=== PATIENT | female | born 1960 | race Caucasian/White ===

== ENCOUNTER 2016-06-19 17:13 | Emergency (ER) | payer OTHER ==
[~2016-06-19] VITALS: Ht 160 cm; Wt 59.0 kg
[2016-06-19 17:15] VITALS: BP 134/92; PULSE 102; RESP 16; TEMP 99.4; O2SAT 96
[2016-06-19 19:35] VITALS: BP 131/93; PULSE 87; RESP 16; O2SAT 97
[2016-06-19] MEDS ORDERED: SODIUM CHLORIDE 0.9% FLUSH 10 ML FLUSH IV FLUSH PRN (19:45)
--- NOTE | 2016-06-19 19:45 | PD ---
HPI Chief Complaint: Abdominal Pain Time Seen by Provider: 19:45 Travel History International Travel<30 days: No Contact w/Intl Traveler<30days: No Traveled to known affect area: No History of Present Illness HPI 56-year-old female presents to the emergency department for evaluation of abdominal pain, nausea and vomiting. Patient states that she's had intermittent abdominal pain for several weeks. States that the abdominal pain became unbearable 2 weeks ago and so she went to [facility] where she was admitted for small bowel extraction. States that she had a colonoscopy and an endoscopy as well as a small bowel series. States that she was told that she had a partial small bowel extraction and may be some enteritis. States that she was discharged home and after 1-2 days her symptoms worsened and she went to [facility] where she was admitted again for small bowel obstruction and discharged yesterday. States that today she tried to eat some soup and watermelon and was unable to keep food or fluids down. States that she has had abdominal pain since this morning that comes intermittently in waves. She describes the pain as generalized but worse in the epigastrium. She states that her last bowel movement was 4 days ago while in the hospital with assistance from an enema. She denies any fever, chills, chest pain, shortness of breath, dysuria, cough or cold symptoms. Denies any prior abdominal surgeries. No other complaints. PFSH Past Medical History Medical History: Denies Significant Hx ?: Not Past Surgical History Surgical History: No Previous Surgery Social History Alcohol Use: No Tobacco Use: Yes Substance Use: No Allergies-Medications (Allergen,Severity, Reaction): Coded Allergies: No Known Allergies (Unverified , 06/19/16) Reported Meds & Prescriptions Reported Meds & Active Scripts Active Zofran Odt (Ondansetron Odt) 4 Mg Tab 4 Mg SL Q6HR PRN Review of Systems Except as stated in HPI: all other systems reviewed are Neg Physical Exam Narrative GENERAL: Well-nourished and well-developed pleasant patient in no acute distress who is nontoxic appearing. SKIN: Warm and dry. HEAD: Normocephalic and atraumatic. EYES: No injection, drainage, or hyphema noted. PERRLA. EOMI. ENT: No nasal drainage noted. Oropharynx is clear. NECK: Supple and the trachea is midline. CARDIOVASCULAR: Regular rate and rhythm. RESPIRATORY: Breath sounds are equal bilaterally with no accessory muscle use, wheezing, rhonchi, or crackles. GASTROINTESTINAL: Generalized abdominal tenderness to palpation. No rebound tenderness or guarding. Abdomen is softand nondistended. MUSCULOSKELETAL: No obvious deformities, swelling, cyanosis, or ecchymosis is present throughout the upper and lower extremities. Patient has full range of motion without any signs of neurovascular compromise. NEUROLOGICAL: Awake, alert, and oriented. Normal speech and gait. Cranial nerves are grossly intact. Data Data Last Documented VS Vital Signs Date Time Temp Pulse Resp B/P Pulse Ox O2 Delivery O2 Flow Rate FiO2 06/19/16 19:35 87 16 131/93 97 Room Air 06/19/16 17:15 99.4 Orders Complete Blood Count With Diff (06/19/16 19:38) Comprehensive Metabolic Panel (06/19/16 19:38) Lipase (06/19/16 19:38) Abdomen, Flat & Upright (06/19/16 ) Iv Access Insert/Monitor (06/19/16 19:38) Ecg Monitoring (06/19/16 19:38) Oximetry (06/19/16 19:38) Sodium Chloride 0.9% Flush (Ns Flush) (06/19/16 19:45) Ct Abd/Pel W/O Iv Contrast (06/19/16 20:29) Ondansetron Odt (Zofran Odt) (06/19/16 22:00) Labs Laboratory Tests Test 06/19/16 20:10 White Blood Count 6.2 TH/MM3 Red Blood Count 4.39 MIL/MM3 Hemoglobin 13.9 GM/DL Hematocrit 40.0 % Mean Corpuscular Volume 91.0 FL Mean Corpuscular Hemoglobin 31.6 PG Mean Corpuscular Hemoglobin 34.7 % Concent Red Cell Distribution Width 14.4 % Platelet Count 298 TH/MM3 Mean Platelet Volume 8.8 FL Neutrophils (%) (Auto) 66.7 % Lymphocytes (%) (Auto) 22.0 % Monocytes (%) (Auto) 10.8 % Eosinophils (%) (Auto) 0.2 % Basophils (%) (Auto) 0.3 % Neutrophils # (Auto) 4.1 TH/MM3 Lymphocytes # (Auto) 1.4 TH/MM3 Monocytes # (Auto) 0.7 TH/MM3 Eosinophils # (Auto) 0.0 TH/MM3 Basophils # (Auto) 0.0 TH/MM3 CBC Comment DIFF FINAL Differential Comment Sodium Level 141 MEQ/L Potassium Level 4.2 MEQ/L Chloride Level 104 MEQ/L Carbon Dioxide Level 24.3 MEQ/L Anion Gap 13 MEQ/L Blood Urea Nitrogen 9 MG/DL Creatinine 0.63 MG/DL Estimat Glomerular Filtration 98 ML/MIN Rate Random Glucose 102 MG/DL Calcium Level 9.8 MG/DL Total Bilirubin 0.5 MG/DL Aspartate Amino Transf 23 U/L (AST/SGOT) Alanine Aminotransferase 30 U/L (ALT/SGPT) Alkaline Phosphatase 75 U/L Total Protein 7.2 GM/DL Albumin 3.7 GM/DL Lipase 60 U/L MDM Medical Decision Making Medical Screen Exam Complete: Yes Emergency Medical Condition: Yes Differential Diagnosis Gastritis versus SBO versus IBD versus colitis versus other Narrative Course 56-year-old female presents to the emergency department for evaluation of abdominal pain, nausea or vomiting. Patient is afebrile. She is initially slightly tachycardic with a heart of 102 bpm. Otherwise vital signs within normal limits. The patient has been admitted twice over the past 2 weeks at 2 separate hospitals for small bowel of extraction. She's had multiple CT scans, EGD, colonoscopy, small bowel series. I did review the records from [facility] that the patient had with her that showed a skid strapper believed symptoms to be due to enteritis and fecal impaction and recommended that if no relief she can be started on Amitiza or Linzess. Colonoscopy 06/12/16 showed fecal impaction but otherwise unremarkable. EGD 06/12 showed erosive gastritis. Small bowel series 06/10/69 shows nonspecific dilated distal small bowel loops without SBO. Records from [facility] are obtained and show that she was admitted there 5 days ago for small bowel extraction and possible bowel stricture. Gen. surgery consultation report shows questionable obstruction as the contrast appears to reach the rectum, small bowel series shows that there is no stricture. IV access is obtained, labs drawn and sent. CBC is unremarkable. CMP is unremarkable. Lipase is normal. Abdominal x-ray shows mildly dilated small loops of bowel, residual contrast, metallic density within the left mid abdomen likely related to ingested camera. CT of the abdomen and pelvis shows residual contrast within the large bowel from previous study causing artifact, some mildly prominent fluid-filled small bowel loops representing possible enteritis. Left basilar atelectasis. The patient has remained stable and without complaint while here in the emergency department. I discussed all results with the patient and family. I discussed with her that imaging and labs are reassuring today and essentially unremarkable. I discussed with the patient and family that she's had 2 recent admissions for the same complaint with full GI workups and I don't think that admitting her at this time would yield any further information. I stressed the importance of outpatient follow-up with a skid strapper. She is concerned as she is having difficulty eating and drinking at home, she states she doesn't have anything for nausea at home. We'll give the patient Zofran to take at home for her nausea. I did advise that she try to stay on a clear to full liquid diet and advance as tolerated. Patient and family verbalized understanding and agreement with treatment plan. I discussed the case with my attending physician Dr. Gooden who is aware of the patients history, physical examination findings, and treatment plan. Diagnosis Primary Impression: Abdominal pain Qualified Code: R10.84 - Generalized abdominal pain Additional Impression: Nausea & vomiting Qualified Code: R11.2 - Non-intractable vomiting with nausea, unspecified vomiting type Referrals: Shop Worker Patient Instructions: Abdominal Pain (ED), Acute Nausea and Vomiting (ED), General Instructions Additional Instructions: Liquid diet and advance as tolerated. Take medication as prescribed. Follow-up with your Shop Worker. Return to the ED for any acute worsening of symptoms. Med/Other Pt SpecificInfo: Prescription(s) given Scripts Ondansetron Odt (Zofran Odt)4 Mg Tab4 Mg SL Q6HR PRN (Nausea/Vomiting) #28 TAB Ref 0 Prov:Brandon Gooden MD 06/19/16 Disposition: 01 DISCHARGE HOME Condition: Stable Mere Lopez Jun 19, 2016 19:45
--- NOTE | 2016-06-19 20:13 | RADRPT ---
EXAM DATE/TIME: 06/19/2016 19:52 [facility] COMPARISON: No previous studies available for comparison. INDICATIONS : Abodmen pain. After small bowel study on 06/17. MEDICAL HISTORY : None. SURGICAL HISTORY : None. ENCOUNTER: Initial ACUITY: 3 days PAIN SCORE: 5/10 LOCATION: Bilateral Abdomen FINDINGS: Supine and upright views of the abdomen were performed. Mild lead dilated small bowel loops are seen within the upper abdomen. Residual contrast in the colon. Metallic density noted within the mid abdo men. No abnormal masses, calcifications, or organomegaly is seen. The visualized lower lungs are benoit ar. No evidence of free intraperitoneal gas. The osseous structures are unremarkable. CONCLUSION: 1. Mildly dilated small bowel loops are seen. 2. Residual contrast in the colon. 3. Metallic density within the left midabdomen likely related to ingested camera. Gian Anderson MD on June 19, 2016 at 20:08 Board Certified Radiologist. This report was verified electronically.
[2016-06-19 20:37] LABS: AUTOMATED NEUTROPHIL # 4.1 TH/MM3 (1.8-7.7); BASOPHIL % 0.3 % (0.0-2.0); EOSINOPHIL % 0.2 % (0.0-4.0); HEMO FLAGS DIFF FINAL; LYMPHOCYTE # 1.4 TH/MM3 (1.0-4.8); MEAN CORPUSCULAR HEMOGLOBIN 31.6 PG (27.0-34.0); MEAN CORPUSCULAR HGB CONC 34.7 % (32.0-36.0); MONO % 10.8 % (0.0-8.0); NEUT % 66.7 % (16.0-70.0); PLATELET COUNT 298 TH/MM3 (150-450); RED BLOOD COUNT 4.39 MIL/MM3 (4.00-5.30); RED CELL DISTRIBUTION WIDTH 14.4 % (11.6-17.2); WHITE BLOOD COUNT 6.2 TH/MM3 (4.0-11.0)
[2016-06-19 21:01] LABS: ALKALINE PHOSPHATASE 75 U/L (45-117); ALT (GPT) 30 U/L (10-53); ANION GAP 13 MEQ/L (5-15); AST (GOT) 23 U/L (15-37); BICARBONATE 24.3 MEQ/L (21.0-32.0); BLOOD UREA NITROGEN 9 MG/DL (7-18); CHLORIDE 104 MEQ/L (98-107); GLOMERULAR FILTRATION RATE 98 ML/MIN (>89); SODIUM (NA) 141 MEQ/L (136-145); TOTAL BILIRUBIN ADULT 0.5 MG/DL (0.2-1.0)
[2016-06-19 21:02] LABS: POTASSIUM 4.2 MEQ/L (3.5-5.1)
--- NOTE | 2016-06-19 21:10 | RADRPT ---
EXAM DATE/TIME: 06/19/2016 20:44 [facility] COMPARISON: ABDOMEN FLAT & UPRIGHT, June 19, 2016, 19:52. INDICATIONS : Lower abdominal pain, vomiting and difficulty defecating. ORAL CONTRAST: No oral contrast ingested. RADIATION DOSE: 9.96 CTDIvol (mGy) MEDICAL HISTORY : None SURGICAL HISTORY : None. ENCOUNTER: Initial ACUITY: 1 month PAIN SCALE: 10/10 LOCATION: Bilateral lower quadrant TECHNIQUE: Volumetric scanning of the abdomen and pelvis was performed. Using automated exposure control and ad justment of the mA and/or kV according to patient size, radiation dose was kept as low as reasonably achievable to obtain optimal diagnostic quality images. FINDINGS: LOWER LUNGS: Left basilar atelectasis. LIVER: Homogeneous density without lesion. There is no dilation of the biliary tree. No calcified gallston es. SPLEEN: Normal size without lesion. PANCREAS: Within normal limits. KIDNEYS: Normal in size and shape. There is no mass, stone, or hydronephrosis. ADRENAL GLANDS: Within normal limits. VASCULAR: There is no aortic aneurysm. BOWEL/MESENTERY: Residual contrast within the large bowel from previous study causes streak artifact throughout the ab domen. There are some fluid filled mildly prominent small bowel loops. ABDOMINAL WALL: Within normal limits. RETROPERITONEUM: There is no lymphadenopathy. BLADDER: No wall thickening or mass. REPRODUCTIVE: Within normal limits. INGUINAL: There is no lymphadenopathy or hernia. MUSCULOSKELETAL: Within normal limits for patient age. CONCLUSION: 1. Residual contrast within the large bowel from previous study causes significant artifact throughou t the abdomen. 2. There are some mildly prominent fluid-filled small bowel loops possible enteritis. 3. Left basilar atelectasis. Gian Anderson MD on June 19, 2016 at 21:05 Board Certified Radiologist. This report was verified electronically.
[2016-06-19] MEDS ORDERED: ZOFR4TAB3 SL (21:57)
[2016-06-19] MEDS ORDERED: ONDANSETRON ODT 4 MG TAB PO ONE (22:00)
[2016-06-19 23:01] VITALS: BP 143/78; PULSE 78; RESP 16; O2SAT 98
== END 2016-06-19 23:07 | disposition home or self-care (01) ==
LOC: NEPC 17:13
DX: R10.84 Generalized abdominal pain (principal); R11.2 Nausea with vomiting, unspecified
CPT/HCPCS: 74020; 74176; 80053; 83690; 85025